=== PATIENT | male | born 1935 | race Caucasian/White ===

== ENCOUNTER → 2017-09-14 | Day surgery (SDC) | payer MEDICARE, OTHER ==
[~2017-09-14] MED LIST: BUPIVACAINE HCL 0.5 % INJ/PF 30 ML SDV ONE; LIDOCAINE 1% INJ-PF (10 MG/ML) 30 ML SDV ONE; METHYLPREDNISOLONE ACETATE INJ 40 MG/1 ML ML ONE
--- NOTE | 2017-09-14 13:32 | RADIOLOGY REPORT (SQ) ---
EXAM DESCRIPTION: INJECT/ASPIR HIP/SHLDR/KNEE; HIP UNILATERAL-1 VIEW; FLUORO/NEEDLE PLACEMENT COMPLETED DATE/TIME: 09/14/2017 1:20 pm REASON FOR STUDY: M16.11 UNILATERAL PRIMARY OSTEOARTHRITIS, RIGHT HIP M16.11 UNILATERAL PRIMARY OST EOARTHRITIS, RIGHT HIP COMPARISON: None. FLUOROSCOPY TIME: 18 seconds. 1 images saved to PACS. LIMITATIONS: None. PROCEDURE: SITE OF INJECTION: Right hip. LOCALIZING CONTRAST TYPE AND DOSE: 2 mL Isovue-300. MEDICATION TYPE AND DOSE: 80 mg Depo-Medrol and 5 mL 0.5% Sensorcaine. Using local anesthesia and sterile technique with fluoroscopic guidance, the needle was advanced into the joint. Iodinated contrast was injected to verify intraarticular placement. This was followed by therapeutic injection of the indicated medications. The needle was removed. There were no immediat e complications. Preprocedure pain level: 2/10. Postprocedure pain level: 0/10. IMPRESSION: THERAPEUTIC INJECTION OF THE RIGHT HIP JOINT ABOVE. COMMENT: Patient medication list reviewed: Yes- Quality ID# [id number]:Eligible professional attests to doc umenting in the medical record they obtained, updated, or reviewed the patient's current medications. . Quality ID 145: Final reports for procedures using fluoroscopy that document radiation exposure ebcca frank, or exposure time and number of fluorographic images (if radiation exposure indices are not avail able) TECHNICAL DOCUMENTATION: JOB ID: [id number] [employer]- All Rights Reserved
--- NOTE | 2017-09-14 13:32 | RADIOLOGY REPORT (SQ) ---
EXAM DESCRIPTION: INJECT/ASPIR HIP/SHLDR/KNEE; HIP UNILATERAL-1 VIEW; FLUORO/NEEDLE PLACEMENT COMPLETED DATE/TIME: 09/14/2017 1:20 pm REASON FOR STUDY: M16.11 UNILATERAL PRIMARY OSTEOARTHRITIS, RIGHT HIP M16.11 UNILATERAL PRIMARY OST EOARTHRITIS, RIGHT HIP COMPARISON: None. FLUOROSCOPY TIME: 18 seconds. 1 images saved to PACS. LIMITATIONS: None. PROCEDURE: SITE OF INJECTION: Right hip. LOCALIZING CONTRAST TYPE AND DOSE: 2 mL Isovue-300. MEDICATION TYPE AND DOSE: 80 mg Depo-Medrol and 5 mL 0.5% Sensorcaine. Using local anesthesia and sterile technique with fluoroscopic guidance, the needle was advanced into the joint. Iodinated contrast was injected to verify intraarticular placement. This was followed by therapeutic injection of the indicated medications. The needle was removed. There were no immediat e complications. Preprocedure pain level: 2/10. Postprocedure pain level: 0/10. IMPRESSION: THERAPEUTIC INJECTION OF THE RIGHT HIP JOINT ABOVE. COMMENT: Patient medication list reviewed: Yes- Quality ID# [id number]:Eligible professional attests to doc umenting in the medical record they obtained, updated, or reviewed the patient's current medications. . Quality ID 145: Final reports for procedures using fluoroscopy that document radiation exposure becca frank, or exposure time and number of fluorographic images (if radiation exposure indices are not avail able) TECHNICAL DOCUMENTATION: JOB ID: [id number] [employer]- All Rights Reserved
== END ==
LOC: RAD 12:22
PROVIDERS: ATTEND Internal Medicine Rheumatology
PROC: 3E0U33Z Introduction of Anti-inflammatory into Joints, Percutaneous Approach (ICD-10-PCS; principal; 2017-09-14)
DX: M16.11 Unilateral primary osteoarthritis, right hip (principal)
CPT/HCPCS: 73501; 20610; 77002; J3490; J1020

== ENCOUNTER → 2018-03-18 | Day surgery (SDC) | payer MEDICARE, OTHER ==
--- NOTE | 2018-03-18 14:50 | RADIOLOGY REPORT (SQ) ---
EXAM DESCRIPTION: INJECT/ASPIR HIP/SHLDR/KNEE COMPLETED DATE/TIME: 03/18/2018 2:26 pm REASON FOR STUDY: UNILATERAL PRIMARY OSTEOARTHRITIS, RIGHT HIP M16.11 UNILATERAL PRIMARY OSTEOARTHR ITIS, RIGHT HIP COMPARISON: None. FLUOROSCOPY TIME: 0.07 minute 1 images saved to PACS. LIMITATIONS: None. PROCEDURE: SITE OF INJECTION: Right hip LOCALIZING CONTRAST TYPE AND DOSE: 1 mL Isovue 300 MEDICATION TYPE AND DOSE: 80 mg of Depo-Medrol and 5 mL of Sensorcaine and 7 mL of lidocaine Using local anesthesia and sterile technique with fluoroscopic guidance, the needle was advanced into the joint. Iodinated contrast was injected to verify intraarticular placement. This was followed by therapeutic injection of the indicated medications. The needle was removed. There were no immediat e complications. IMPRESSION: THERAPEUTIC INJECTION OF THE right hip JOINT ABOVE. COMMENT: Patient medication list reviewed: Yes. Quality ID 145: Final reports for procedures using fluoroscopy that document radiation exposure becca frank, or exposure time and number of fluorographic images (if radiation exposure indices are not avail able) TECHNICAL DOCUMENTATION: JOB ID: [id number] [employer]- All Rights Reserved Reading location - IP/workstation name: [email or web address]
--- NOTE | 2018-03-18 15:02 | RADIOLOGY REPORT (SQ) ---
EXAM DESCRIPTION: FLUORO/NEEDLE PLACEMENT COMPLETED DATE/TIME: 03/18/2018 2:26 pm REASON FOR STUDY: UNILATERAL PRIMARY OSTEOARTHRITIS, RIGHT HIP M16.11 UNILATERAL PRIMARY OSTEOARTHR ITIS, RIGHT HIP COMPARISON: None. FLUOROSCOPY TIME: 0.07 minutes 1 images saved to PACS. LIMITATIONS: None. PROCEDURE: SITE OF INJECTION: Right hip LOCALIZING CONTRAST TYPE AND DOSE: 1 mL Isovue-300 MEDICATION TYPE AND DOSE: 80 mg Depo-Medrol, 5 mL Sensorcaine, and 7 mL lidocaine Using local anesthesia and sterile technique with fluoroscopic guidance, the needle was advanced into the joint. Iodinated contrast was injected to verify intraarticular placement. This was followed by therapeutic injection of the indicated medications. The needle was removed. There were no immediat e complications. IMPRESSION: THERAPEUTIC INJECTION OF THE right hip JOINT ABOVE. COMMENT: Patient medication list reviewed: Yes. Quality ID 145: Final reports for procedures using fluoroscopy that document radiation exposure becca frank, or exposure time and number of fluorographic images (if radiation exposure indices are not avail able) TECHNICAL DOCUMENTATION: JOB ID: [id number] [employer]- All Rights Reserved Reading location - IP/workstation name: [email or web address]
== END ==
LOC: RAD 13:52
PROVIDERS: ATTEND Internal Medicine Rheumatology
DX: M16.11 Unilateral primary osteoarthritis, right hip (principal)
CPT/HCPCS: 20610; 77002; J3490 ×2; J1020

== ENCOUNTER → 2018-03-23 | Outpatient (CLI) | payer MEDICARE, OTHER ==
[2018-03-23 15:15] LABS: ABSOLUTE BASOPHILS # (AUTO) 0.1 10^3/uL (0.0-0.2); ABSOLUTE EOSINOPHILS # (AUTO) 0.2 10^3/uL (0.0-0.6); ABSOLUTE LYMPHOCYTES (AUTO) 1.7 10^3/uL (0.5-4.7); ABSOLUTE NEUT (AUTO) 5.5 10^3/uL (1.7-8.2); BASOPHILS % (AUTO) 0.6 % (0-2); EOSINOPHILS % (AUTO) 2.8 % (0-6); HEMATOCRIT 40.2 % (37.9-51.0); HEMOGLOBIN 13.6 g/dL (13.5-17.0); LYMPHOCYTES % (AUTO) 20.2 % (13-45); MEAN CORPUSCULAR HEMOGLOBIN 32.3 pg (27.0-33.4); MEAN CORPUSCULAR HGB CONC 33.7 g/dL (32.0-36.0); MEAN CORPUSCULAR VOLUME 96 fl (80-97); MONOCYTES % (AUTO) 11.9 % (3-13); PLATELET COUNT 249 10^3/uL (150-450); RED CELL DISTRIBUTION WIDTH 13.7 % (11.5-14.0); SEGMENTED NEUTROPHILS % (AUTO) 64.5 % (42-78); TOTAL CELLS COUNTED % (AUTO) 100 %; WHITE BLOOD COUNT 8.5 10^3/uL (4.0-10.5)
[2018-03-23 15:19] LABS: BLOOD UREA NITROGEN 53 mg/dL (7-20); CALCIUM 9.9 mg/dL (8.4-10.2); CHLORIDE 101 mmol/L (98-107); GLUCOSE 111 mg/dL (75-110); POTASSIUM 4.8 mmol/L (3.6-5.0)
[2018-03-23 15:20] LABS: ALANINE AMINOTRANSFERASE 30 U/L (21-72); ALBUMIN 4.5 g/dL (3.5-5.0); ALKALINE PHOSPHATASE 53 U/L (38-126); ANION GAP 12 (5-19); ASPARTATE AMINO TRANSFERASE 27 U/L (17-59); BILIRUBIN,DIRECT 0.3 mg/dL (0.0-0.4); BILIRUBIN,TOTAL 0.9 mg/dL (0.2-1.3); CARBON DIOXIDE 30 mmol/L (22-30); SODIUM 142.5 mmol/L (137-145); TOTAL PROTEIN 7.1 g/dL (6.3-8.2)
[2018-03-24 09:10] LABS: APPEARANCE,URINE CLEAR; BILIRUBIN,URINE NEGATIVE (NEGATIVE); COLOR,URINE STRAW; GLUCOSE, URINE NEGATIVE (NEGATIVE); KETONES,URINE NEGATIVE (NEGATIVE); LEUKOCYTE ESTERASE,URINE NEGATIVE (NEGATIVE); NITRITE,URINE NEGATIVE (NEGATIVE); PROTEIN,URINE NEGATIVE (NEGATIVE); URINE SPECIFIC GRAVITY 1.009; UROBILINOGEN,URINE NEGATIVE mg/dL (<2.0)
== END ==
LOC: OD 13:49
PROVIDERS: ATTEND Family Medicine
DX: R63.4 Abnormal weight loss (principal)
CPT/HCPCS: 36415; 80053; 81001; 82272; 85025

== ENCOUNTER → 2018-04-01 | Outpatient (CLI) | payer MEDICARE, OTHER ==
--- NOTE | 2018-04-01 12:48 | RADIOLOGY REPORT (SQ) ---
EXAM DESCRIPTION: UGI SERIES COMPLETED DATE/TIME: 04/01/2018 8:23 am REASON FOR STUDY: ABNORMAL WEIGHT LOSS (R63.4) R63.4 ABNORMAL WEIGHT LOSS COMPARISON: None. TECHNIQUE: Under fluoroscopic guidance, patient ingested effervescent granules followed by thick and thin barium. Fluoroscopic spot images and routine radiographic images acquired and stored on PACS. 12 MM BARIUM TABLET GIVEN: Yes No significant delay in passage. LIMITATIONS: None. FLUOROSCOPY TIME: FLUORO TIME: 3 minutes 21 series of digital images saved to PACS. FINDINGS: NEUROMUSCULAR COORDINATION OF SWALLOW: Normal. No aspiration. ESOPHAGEAL MOTILITY: Normal peristalsis. No esophageal spasm. ESOPHAGEAL MUCOSA: Normal mucosa without masses or ulceration. GASTRO-ESOPHAGEAL JUNCTION: No hiatal hernia or reflux. STOMACH: No ulcerations. Smooth mucosal surface of the body and antrum of the stomach could indicate atrophic gastritis. Normal gastric emptying. GASTRIC OUTLET: No delay in emptying. Normal pylorus. DUODENAL BULB: Normal distention. No spasm or ulceration. DUODENUM: Mucosa normal. No extrinsic masses or malrotation. PROXIMAL SMALL BOWEL: Mucosa normal. No extrinsic masses or malrotation. NON-GI TRACT STRUCTURES: No significant finding. OTHER: The infrarenal abdominal aorta is ectatic, 3 cm to 4 cm in greatest diameter. Abdominal aorta screening ultrasound for aneurysm is recommended. IMPRESSION: LOSS OF MUCOSAL FOLD PATTERN IN THE GASTRIC BODY AND ANTRUM, COULD REFLECT ATROPHIC AMBAR RITIS. 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 ULTRASOUND SCREENING FOR ABDOMINAL AORTIC ANEURYSM RECOMMENDED . OTHERWISE, UNREMARKABLE DOUBLE CONTRAST BARIUM SWALLOW / UPPER GI SERIES. COMMENT: Quality ID 145: Final reports for procedures using fluoroscopy that document radiation exp osure indices, or exposure time and number of fluorographic images (if radiation exposure indices are not available) TECHNICAL DOCUMENTATION: JOB ID: [id number] [employer]- All Rights Reserved Reading location - IP/workstation name: [email or web address]
== END ==
LOC: RAD 07:21
PROVIDERS: ATTEND Family Medicine
DX: R63.4 Abnormal weight loss (principal)
CPT/HCPCS: 74247